=== PATIENT | male | born 1965 | race Caucasian/White ===

== ENCOUNTER 2016-10-26 17:28 | Inpatient (IN) ==
[2016-10-26] MEDS ORDERED: SODIUM CHLORIDE 0.9% 1,000 ML IV STA (18:29)
[2016-10-26 19:15] LABS: Basophils % 0.4 % (0.0-0.8); Eosinophils # 0.2 10*3/uL (0.0-0.87); Hematocrit 45.7 VOL% (42.0-52.0); Hemoglobin 15.7 GM/DL (14.0-18.0); Immature Granulocytes % 0.4 %; Immature Granulocytes Absolute 0.03 #; Lymphocytes # 2.3 10*3/uL (1.4-4.0); Lymphocytes % 27.1 % (21.2-54.2); Mean Corpuscular HGB Conc 34.4 GM/DL (32-36); Mean Corpuscular Hemoglobin 33 PG (27-34); Mean Platelet Volume 9.6 FL (9.6-12.0); Monocytes # 0.4 10*3/uL (0.11-0.8); Neutrophils # 5.5 10*3/uL (1.4-7.4); Neutrophils % 65.1 % (38.7-73.9); Platelet Count 181 T/CUMM (130-400); Red Blood Count 4.81 MC/CUMM (3.8-5.5); Red Cell Distribution Width 13.2 % (9.3-17.3); White Blood Count 8.4 T/CUMM (4-12)
[2016-10-26 19:22] LABS: INR 1.1; PT Patient Result 11.4 SECS
--- NOTE | 2016-10-26 19:23 | Emergency Department Note ---
Jesus Alcantara Mantricia, am scribing for, and in the presence of, Naseem Abreu MD 18:36. Lois Alcantara Charles R, MD, personally performed the services described in this documentation, ascribed by Smith Lee in my presence, and it is both accurate and complete [id number] . Arrival - Arrival Chief Complaint: Overdose ED Nursing Triage Note: Pt arrived via ems with complaint of overdose on xanax from [facility] in [place]. Pt reports taking Xanax 1mg #26 tabs today and #13 tabs last night. Pt denies wanting to harm self at this time. Mode of Arrival: Stretcher Limitations: No Limitations Source: Patient Time Seen by Provider: 10/26/16 17:58 - History of Present Illness HPI Narrative: Pt is a 51 y/o white male arriving to ED for evaluation after overdose that onset yesterday. He reports taking 26 tablets of Zanax today and 13 tablets of Zanax last night. Pt denies any suicidal intentions states that the Zanax is the only medication that he has that helps with his bipolar disorder. He denies every overdosing before. Pt states that he has not consumed any alcohol since he was Dx with bladder cancer. Pt is arousable at time of exam, but is a poor historian. at time of He reports no other complaints to ED. Onset (ago): day(s) Consistency: constant Review of System - Review of System 12 point system: reviewed and no additional remarkable complaints except as stated - Review of System Constitutional: Present: other (overdose). Absent: chills, diaphoresis Eyes: Absent: discharge, pain Gastrointestinal: Absent: abdominal pain, nausea, vomiting, diarrhea Psychiatric: Absent: suicidal thoughts Medical,Surgical,& Family Hx - Medical History Psychological: History of: Bipolar Disorder, Depression, Psychiatric Problems Renal: History of: Renal (Kidney) Cancer - Surgical History Reproductive Surgeries: Surgical HX of;: Genitourinary Surgery (urostomy) - Social History Smoking Status: Smoker, status unknown Frequency of Alcohol Use: None Type of Drug Use: Marijuana Exam Vital Signs: Vital Signs Temperature 98.1 F 10/26/16 17:30 Pulse Rate 53 L 10/26/16 17:30 Respiratory Rate 18 10/26/16 17:46 Blood Pressure 84/65 10/26/16 17:30 O2 Sat by Pulse Oximetry 100 10/26/16 17:30 - General General appearance: other (frail looking) - Head Head exam: Present: atraumatic, normocephalic. Absent: normal inspection - Eye Eye exam: Present: PERRL, EOMI, nystagmus (vertical and horizontal) - ENT ENT exam: Present: normal exam, normal oropharynx, mucous membranes moist, TM's normal bilaterally, normal external ear exam - Neck Neck exam: Present: normal inspection, full ROM, trachea midline. Absent: tenderness - Chest Chest inspection: Present: normal inspection, symmetric chest wall rise. Absent : tenderness - Respiratory Respiratory exam: Present: normal lung sounds bilaterally - Cardiovascular Cardiovascular exam: Present: regular rate, normal rhythm, normal heart sounds - Abdominal Exam Abdominal exam: Present: soft, normal bowel sounds. Absent: distention, tenderness, guarding, rebound - Extremities Exam Extremities exam: Present: normal inspection, full ROM, normal capillary refill. Absent: tenderness, pedal edema - Back Exam Back exam: Present: normal inspection, full ROM. Absent: tenderness - Neurological Exam Neurological exam: Present: alert, oriented X3, CN II-XII intact, normal gait, reflexes normal - Psychiatric Psychiatric exam: Present: normal mood. Absent: suicidal ideation - Skin Skin exam: Present: warm, dry, normal color, other (poor skin turgor) Course - Consultations Consultation #1: Hospitalist will admit patient Time: 19:20 Results - Labs Lab Results: I have reviewed the patients labs Labs: All results reviewed from previous facility Critical Care Time Critical Care Time: Yes Total Critical Care Time: 60 Disposition Clinical Impression: Drug overdose, Hypotension, History of bipolar disorder, Bradycardia Case discussed with: patient Disposition: Still a Patient Condition: Guarded Time of Disposition: 19:22
--- NOTE | 2016-10-26 19:33 | Hospitalist History & Physical ---
Assessment and Plan - Time spent with patient Time spent with patient: Greater than 30 minutes (1) Drug overdose Status: Acute Assessment and plan: Patient took an overdose of alprazolam with the intent to harm himself. Will be monitored in the ICU this evening and placed on suicide precautions. He will be hydrated and provided neuro checks. Will have him evaluated by [facility] in the a.m. Current Visit: Yes (2) Tobacco dependence Status: Chronic Assessment and plan: Will provide nicotine patch and continued smoking cessation discussion. Current Visit: Yes (3) History of bipolar disorder Status: Chronic Assessment and plan: We will refer him for evaluation to [facility] for further psychiatric evaluation and care. Current Visit: Yes (4) History of bladder carcinoma Status: Chronic Assessment and plan: Patient has history of bladder carcinoma and is status post ileo-urostomy. Current Visit: Yes History of Present Illness Chief complaint: Xanax overdose History of present illness: Mr. Novak is a 51 year old white male with history of bladder carcinoma and bipolar disorder who states that he took 26 1 mg Xanax this morning stating that he desired to either sleep or . He called a friend who then called his sister and he was taken to the emergency room at [facility] in [facility] where he was evaluated and subsequently transferred here. He denies any recent fever, chills, chest pain, shortness breath, palpitations, abdominal pain, nausea, vomiting, diarrhea, constipation, melena, hematochezia, hematemesis, dysuria, hematuria, urinary frequency urgency incontinence, seizure or syncope or paresthesias, motor weakness. His primary care provider is Dr. Dominga Nguyen. CODE STATUS was discussed and he is full code. Home Medications Medication Instructions Recorded Confirmed Type ALPRAZolam [Alprazolam] 1 mg PO TID 10/26/16 10/26/16 History ARIPiprazole [Abilify] 5 mg PO BEDTIME 10/26/16 10/26/16 History Divalproex [Depakote] 500 mg PO TID 10/26/16 10/26/16 History Sertraline [Zoloft] 50 mg PO BEDTIME 10/26/16 10/26/16 History Allergies Allergy/AdvReac Type Severity Reaction Status Date / Time No Known Allergies Allergy Unverified 10/26/16 18:35 Medical,Surgical,& Family Hx - Medical History Psychological: History of: Bipolar Disorder, Depression, Psychiatric Problems Renal: History of: Renal (Kidney) Cancer - Surgical History Reproductive Surgeries: Surgical HX of;: Genitourinary Surgery (urostomy) - Family History Family History: Denies;: Family Heart Disease - Social History Smoking Status: Current every day smoker Have you smoked in the last 12 months: Yes Time spent discussing smoking cessation with patient: 3 to 10 minutes Frequency of Alcohol Use: None Type of Drug Use: Marijuana 12 point system: reviewed and no additional remarkable complaints except as stated Exam - Constitutional Vitals: Period Temp Pulse Resp BP Sys/Moore Pulse Ox Last 24 Hr 98.1 F-98.1 F 53-53 12-18 84-84/65-65 100 General appearance: no acute distress - Head Head exam: Present: normocephalic, atraumatic - Eye Eye exam: Present: EOMI. Absent: scleral icterus Pupils: Present: TERRY - ENT ENT exam: Present: normal oropharynx - Neck Neck exam: Present: normal inspection. Absent: lymphadenopathy, meningismus, tenderness, thyromegaly - Respiratory Respiratory exam: Present: clear to auscultation bilaterally. Absent: rales, rhonchi, wheezes - Cardiovascular Cardiovascular exam: Present: regular rate and rhythm. Absent: gallop, systolic murmur, tachycardia - GI/Abdominal GI/Abdominal exam: Present: normal bowel sounds, soft, other (Ostomy bag lower abdomen). Absent: mass, tenderness, rebound - Extremities Exam Extremities exam: Absent: calf tenderness, edema - Back Exam Back exam: Present: normal inspection. Absent: CVA tenderness (L), CVA tenderness (R) - Neurological Exam Neurological exam: Present: alert, oriented X3, CN II-XII intact. Absent: motor sensory deficit - Psychiatric Psychiatric exam: Present: depressed, suicidal ideation, other (Tearful during the exam) - Skin Skin exam: Present: warm, dry. Absent: erythema, rash Results - Labs CBC & BMP: 10/26/16 18:53 Lab Results: I have reviewed the past 24 hour labs Labs: Lab and radiology data from [facility] reviewed. EKG reveals a normal sinus rhythm. Chest x-ray report reveals no acute cardiopulmonary process. Findings suggestive of underlying COPD/emphysema. Urinalysis reveals 5-15 white cells 0-3 red cells urine drug screen is positive for THC ethanol level less than 10 acetaminophen less than 10, salicylate less than 1, CBC reveals a white count of 9.29, hemoglobin 17.6, hematocrit 50.8, platelet count 204,000, electrolytes are within normal limits, glucose 80, creatinine 0.7, BUN 24, liver function studies within normal limits. - EKG EKG shows: sinus rhythm - Diagnostic Findings Procedure: Chest x-ray: report reviewed by me
[2016-10-26 19:36] LABS: Alanine Aminotransferase 25 U/L (16-61); Albumin 3.4 G/DL (3.4-5.0); Alkaline Phosphatase 76 U/L (45-117); Aspartate Amino Transferase 11 U/L (0-37); Blood Urea Nitrogen 22 MG/DL (7-18); Calcium 8.7 MG/DL (8.5-10.1); Glucose 74 MG/DL (74-106); Osmolality,Calculated 284.1 MOS/KG (273-304); Potassium 3.9 MMOL/L (3.5-5.1); Sodium 142 MMOL/L (136-145); Total Protein 5.9 G/DL (6.4-8.3)
[2016-10-26] MEDS ORDERED: ONDANSETRON 4 MG/2 ML VIAL IV PRN (19:43)
[2016-10-26 19:51] LABS: Acetaminophen 2.9 UG/ML (10-30); Salicylate 4.1 MG/DL (2.8-20)
[2016-10-26 20:06] LABS: Apearance,Urine CLOUDY (Clear); Bacteria,Urine Many /HPF (Few); Bilirubin,Urine Negative (Negative); Blood, Urine Negative (Negative); Glucose,Urine (UA) Negative (Negative); Ketones,Urine Negative (Negative); Mucus,Urine Occasional /LPF (Occasional); Nitrite,Urine Negative (Negative); Protein,Urine 100 MG/DL; RBC,Urine 21 /HPF (0-4); Squamous Epithelial Cell,Urine Occasional /HPF (0-10); Triple Phosphate Crystal,Urine Many /HPF (Few); Urine Color Yellow (Yellow); Urine Specific Gravity 1.013 (1.001-1.035); Urine Urobilinogen < 2.0 EU/DL (0.2-1.0); WBC,Urine 51 /HPF (0-6)
[2016-10-26] MEDS: SODIUM CHLORIDE 0.9% 1,000 ML IV SCH (20:16)
[2016-10-26 20:17] LABS: Barbiturates Screen,Urine Negative (Negative); Benzodiazepines Screen,Urine Positive (Negative); Cannabinoid Screen,Urine Positive (Negative); Opiate Screen,Urine Negative (Negative); Phencyclidine Screen,Urine Negative (Negative)
[2016-10-27 04:21] LABS: Basophils % 0.5 % (0.0-0.8); Eosinophils # 0.2 10*3/uL (0.0-0.87); Eosinophils % 2.5 % (0.00-10.9); Hematocrit 42.6 VOL% (42.0-52.0); Hemoglobin 14.7 GM/DL (14.0-18.0); Immature Granulocytes % 0.3 %; Immature Granulocytes Absolute 0.02 #; Lymphocytes # 2.2 10*3/uL (1.4-4.0); Lymphocytes % 35.4 % (21.2-54.2); Mean Corpuscular HGB Conc 34.5 GM/DL (32-36); Mean Corpuscular Hemoglobin 34 PG (27-34); Monocytes # 0.4 10*3/uL (0.11-0.8); Monocytes % 6.3 % (1.7-12.7); Neutrophils # 3.5 10*3/uL (1.4-7.4); Platelet Count 169 T/CUMM (130-400); Red Blood Count 4.39 MC/CUMM (3.8-5.5); Red Cell Distribution Width 13.1 % (9.3-17.3); White Blood Count 6.3 T/CUMM (4-12)
[2016-10-27 04:56] LABS: Albumin 2.9 G/DL (3.4-5.0); Bilirubin,Total 0.8 MG/DL (0.2-1.0); Calcium 8.6 MG/DL (8.5-10.1); Osmolality,Calculated 285.8 MOS/KG (273-304); Potassium 4.4 MMOL/L (3.5-5.1); Total Protein 5.3 G/DL (6.4-8.3)
[2016-10-27] MEDS: SODIUM CHLORIDE 0.9% 1,000 ML IV SCH (06:47)
--- NOTE | 2016-10-27 08:56 | EKG Report ---
Stationary ECG Study [facility] ER Test Date: 10/26/2016 7:06:34 PM Pat Name: JUANJOSE SCHROEDER Department: Room: 118 Gender: M Study Lead: : 1965 Requested by: Naseem Nathan Order Number: [id number] Reading MD: CHAPARRO HERRERA Intervals [place] Rate: 45 P: 80 GA: 169 QRS: 84 QRSD: 95 T: 82 QT: 423 QTc: 379 Interpretive Statements SINUS BRADYCARDIA EARLY REPOLARIZATION Electronically Signed On 10-27-16 17:41:59 CDT by CHAPARRO HERRERA [email or web address]
[2016-10-27] MEDS ORDERED: PANTOPRAZOLE 40 MG TABLET PO SCH (09:00)
--- NOTE | 2016-10-27 09:49 | Hospitalist Progress Note ---
Assessment and Plan (1) Drug overdose Status: Acute Assessment and plan: The patient will continue treatment in the hospital with supportive care. We will consult [facility] to evaluate the patient's emotional state and make recommendations concerning necessary treatment. The patient is metabolically stable without sequelae of complication from the Xanax. Current Visit: Yes Qualifiers: Encounter type: initial encounter (2) History of bipolar disorder Status: Chronic Current Visit: Yes (3) History of bladder carcinoma Status: Chronic Current Visit: Yes Hospitalist: Subjective Interval history: The patient was admitted to the hospital after overtaking Xanax. The patient has underlying bipolar disorder. The patient does not express any suicidal ideation at this time. Hemodynamics are stable. Exam - Constitutional Vitals: Period Temp Pulse Resp BP Sys/Moore Pulse Ox Last 24 Hr 97.2 F-98.1 F 53-76 2-21 77-116/54-72 94-100 General appearance: no acute distress - Respiratory Respiratory exam: Present: clear to auscultation bilaterally - Cardiovascular Cardiovascular exam: Present: regular rate and rhythm - GI/Abdominal GI/Abdominal exam: Present: normal bowel sounds Results - Labs CBC & BMP: 10/27/16 03:38 10/27/16 03:38 Lab Results: I have reviewed the past 24 hour labs Quality Measures - VTE Contraindication to Pharmacological VTE Prophylaxis: Clinical assessment deems Pt at low risk, no prophalaxis needed
[2016-10-27 10:51] VITALS: BP 121/71
[2016-10-27] MEDS: NICOTINE 21 MG/24 HR PATCH TRANSDERM SCH ×2 (11:39→13:15)
--- NOTE | 2016-10-27 14:28 | Discharge Summary ---
Hospital Course - Hospital Course Hospital Course: The patient was admitted to the hospital after overtaking Xanax. The patient was observed overnight in the intensive care unit. He does not have any metabolic or cardiovascular complications. The patient was evaluated and accepted by [place] the following day. The patient is ready for transfer to [place] for further evaluation of his emotional condition. The patient has bipolar disorder. On the date of discharge, chest clear and abdomen soft. Total time spent with the patient, documentation, and counseling required 42 minutes today. - Time spent with patient Time with patient DS: Greater than 30 minutes Diagnosis - Discharge Diagnosis (1) Drug overdose Status: Resolved (2) History of bipolar disorder Status: Chronic (3) History of bladder carcinoma Status: Chronic Discharge Plan - Discharge Data Disposition: Disch/Xfer to Psych Hos Condition at Discharge: Stable Discharge Diet: heart healthy Activity: resume usual activities as tolerated - Discharge Medications New RX: Nicotine 21 mg/24 Hr Patch [Nicoderm CQ 21 mg/24 hr Patch] 1 patch TRANSDERM DAILY patch Continue RX: Divalproex [Depakote] 500 mg PO TID RX: ARIPiprazole [Abilify] 5 mg PO BEDTIME RX: ALPRAZolam [Alprazolam] 1 mg PO TID RX: Sertraline [Zoloft] 50 mg PO BEDTIME - Follow Up or Referral - Forms/Instructions Exam - Constitutional Vitals: Period Temp Pulse Resp BP Sys/Moore Pulse Ox Last 24 Hr 97.2 F-98.1 F 53-76 2-21 77-121/54-72 94-100 Discharge Results Procedures and tests throughout hospitalization: Pending Orders 10/26/16 Urine Culture Routine Labs on day of discharge: Labs from last 24 hours 10/27/16 10/27/16 10/26/16 03:38 03:38 19:45 WBC 6.3 RBC 4.39 Hgb 14.7 Hct 42.6 MCV 97.0 MCH 34 MCHC 34.5 RDW 13.1 Plt Count 169 MPV 10.0 Neut % (Auto) 55.0 Lymph % (Auto) 35.4 [place] % (Auto) 6.3 Eos % (Auto) 2.5 Baso % (Auto) 0.5 Neut # (Auto) 3.5 Lymph # (Auto) 2.2 [place] # (Auto) 0.4 Eos # (Auto) 0.2 Baso # (Auto) 0.0 Immature Gran % 0.3 Nucleated RBC % 0.0 Immature Gran # 0.02 Nucleated RBCs # 0.00 INR PT Patient/Control Mix Sodium 144 Potassium 4.4 Chloride 112 H Carbon Dioxide 22 Anion Gap 14.4 BUN 19 H Creatinine 0.70 GFR Calculation 113 BUN/Creatinine Ratio 27.00 H Glucose 70 L Calculated Osmolality 285.8 Calcium 8.6 Magnesium Total Bilirubin 0.80 AST 12 ALT 22 Alkaline Phosphatase 68 Troponin I Total Protein 5.3 L Albumin 2.9 L Globulin 2.4 Albumin/Globulin Ratio 1.2 Urine Color Urine Appearance Urine pH Ur Specific [place] Urine Protein Urine Glucose (UA) Urine Ketones Urine Blood Urine Nitrate Urine Bilirubin Urine Urobilinogen Urine Leukocytes Urine RBC Urine WBC Ur Squamous Epith Cells Triple Phos Crystals Urine Bacteria Urine Mucus Ur Culture Indicated? Salicylates Urine Opiates Screen Negative Acetaminophen Ur Barbiturates Screen Negative Ur Phencyclidine Scrn Negative U Amphetamine/Methamph Negative U Benzodiazepines Scrn Positive H U Cocaine Metab Screen Negative U Cannabinoids Screen Positive H Serum Alcohol 10/26/16 10/26/16 10/26/16 19:45 18:53 18:53 WBC RBC Hgb Hct MCV MCH MCHC RDW Plt Count MPV Neut % (Auto) Lymph % (Auto) [place] % (Auto) Eos % (Auto) Baso % (Auto) Neut # (Auto) Lymph # (Auto) [place] # (Auto) Eos # (Auto) Baso # (Auto) Immature Gran % Nucleated RBC % Immature Gran # Nucleated RBCs # INR 1.1 PT Patient/Control Mix 11.4 Sodium Potassium Chloride Carbon Dioxide Anion Gap BUN Creatinine GFR Calculation BUN/Creatinine Ratio Glucose Calculated Osmolality Calcium Magnesium Total Bilirubin AST ALT Alkaline Phosphatase Troponin I < 0.015 Total Protein Albumin Globulin Albumin/Globulin Ratio Urine Color Yellow Urine Appearance Cloudy Urine pH 9.0 H Ur Specific [place] 1.013 Urine Protein 100 Urine Glucose (UA) Negative Urine Ketones Negative Urine Blood Negative Urine Nitrate Negative Urine Bilirubin Negative Urine Urobilinogen < 2.0 H Urine Leukocytes Moderate H Urine RBC 21 Urine WBC 51 Ur Squamous Epith Cells Occasional Triple Phos Crystals Many Urine Bacteria Many Urine Mucus Occasional Ur Culture Indicated? Results to follow Salicylates Urine Opiates Screen Acetaminophen Ur Barbiturates Screen Ur Phencyclidine Scrn U Amphetamine/Methamph U Benzodiazepines Scrn U Cocaine Metab Screen U Cannabinoids Screen Serum Alcohol 10/26/16 10/26/16 10/26/16 18:53 18:53 18:53 WBC 8.4 RBC 4.81 Hgb 15.7 Hct 45.7 MCV 95.0 MCH 33 MCHC 34.4 RDW 13.2 Plt Count 181 MPV 9.6 Neut % (Auto) 65.1 Lymph % (Auto) 27.1 [place] % (Auto) 5.0 Eos % (Auto) 2.0 Baso % (Auto) 0.4 Neut # (Auto) 5.5 Lymph # (Auto) 2.3 [place] # (Auto) 0.4 Eos # (Auto) 0.2 Baso # (Auto) 0.0 Immature Gran % 0.4 Nucleated RBC % 0.0 Immature Gran # 0.03 Nucleated RBCs # 0.00 INR PT Patient/Control Mix Sodium 142 Potassium 3.9 Chloride 110 H Carbon Dioxide 26 Anion Gap 9.9 BUN 22 H Creatinine 0.70 GFR Calculation 121 BUN/Creatinine Ratio 31.00 H Glucose 74 Calculated Osmolality 284.1 Calcium 8.7 Magnesium 2.0 Total Bilirubin 0.60 AST 11 ALT 25 Alkaline Phosphatase 76 Troponin I Total Protein 5.9 L Albumin 3.4 Globulin 2.5 Albumin/Globulin Ratio 1.3 Urine Color Urine Appearance Urine pH Ur Specific [place] Urine Protein Urine Glucose (UA) Urine Ketones Urine Blood Urine Nitrate Urine Bilirubin Urine Urobilinogen Urine Leukocytes Urine RBC Urine WBC Ur Squamous Epith Cells Triple Phos Crystals Urine Bacteria Urine Mucus Ur Culture Indicated? Salicylates 4.1 Urine Opiates Screen Acetaminophen 2.9 L Ur Barbiturates Screen Ur Phencyclidine Scrn U Amphetamine/Methamph U Benzodiazepines Scrn U Cocaine Metab Screen U Cannabinoids Screen Serum Alcohol < 15 L DS: Provider Date of admission: 10/26/16 18:35 Primary care physician: . No PCP Attending physician on admission: Denise Sanchez MD Consults: 10/27/16 08:05 Consult to Case Mgmt/Social Srvs [CONS] Routine Reason for Case Mgmt/Social Srvs: Psychiatric Management Consult Comment: CONSULT FOR [facility], SUICIDAL Discharging clinician: Niko Manzanares MD
== END 2016-10-27 18:10 | DRG 918 ==
LOC: EDUNIT# → EDBD → N.ED 17:28 → SUATTDRO 18:35 → N.EDINP 18:35 → N.ICU 19:02
PROVIDERS: ADMIT Family Medicine; ATTEND Internal Medicine